=== PATIENT | female | born 1985 | race Asian ===

== ENCOUNTER 2018-05-23 14:53 | Emergency (ER) | payer MEDICAID ==
[~2018-05-23] VITALS: Ht 152.4 cm; Wt 52.0 kg
[2018-05-23 15:32] LABS: BASOPHILS # (AUTO) 0.03 x10^3/uL (0-0.1); BASOPHILS % (AUTO) 0 % (0-1); EOSINOPHILS # (AUTO) 0.06 x10^3/uL (0-0.4); EOSINOPHILS % (AUTO) 0 % (1-7); LYMPHOCYTES # (AUTO) 1.07 x10^3/uL (1-3.4); LYMPHOCYTES % (AUTO) 7 % (22-44); MD NO; MEAN CORPUSCULAR HEMOGLOBIN 29.7 pg (27.0-34.8); MEAN CORPUSCULAR HGB CONC 33.9 g/dL (32.4-35.8); MEAN CORPUSCULAR VOLUME 87.8 fL (80-100); MEAN PLATELET VOLUME 8.3 fL (7.4-10.4); MONOCYTES # (AUTO) 0.71 x10^3/uL (0.2-0.8); MONOCYTES % (AUTO) 5 % (2-9); NEUTROPHILS # (AUTO) 13.04 x10^3/uL (1.8-6.8); NEUTROPHILS % (AUTO) 87 % (42-75); PLATELET COUNT 250 x10^3/uL (130-400); RED BLOOD COUNT 4.32 x10^6/uL (3.82-5.3); RED CELL DISTRIBUTION WIDTH 13.4 % (9.6-15.2)
[2018-05-23 15:48] LABS: ALANINE AMINOTRANSFERASE 21 U/L (12-78); ALBUMIN 3.1 g/dL (3.4-5.0); ANION GAP 8 mmol/L (5-15); CALCIUM 8.4 mg/dL (8.5-10.1); CHLORIDE 106 mmol/L (98-107); CREATININE 0.62 mg/dL (0.55-1.02)
[2018-05-23 15:51] LABS: ALKALINE PHOSPHATASE 77 U/L (45-117); BILIRUBIN,TOTAL 0.2 mg/dL (0.2-1.0); TOTAL PROTEIN 7.3 g/dL (6.4-8.2)
[2018-05-23 18:15] VITALS: BP 95/67
--- NOTE | 2018-05-23 19:02 | NUR ---
pt called to room from lobby
--- NOTE | 2018-05-23 19:04 | NUR ---
not in lobby when called to room
--- NOTE | 2018-05-23 19:19 | NUR ---
pt called to room from lobby
[2018-05-23] MEDS ORDERED: PREN-3 PO (19:33)
[2018-05-23 21:02] LABS: MICROSCOPIC NOT IND
[2018-05-23 21:03] LABS: CULTURE INDICATED? NO
== END 2018-05-23 22:35 | disposition home or self-care (01) ==
LOC: ED 21:00
DX: O41.02X0 Oligohydramnios, second trimester, not applicable or unspecified (principal); Z3A.18 18 weeks gestation of pregnancy
CPT/HCPCS: 36415; 76815; 80053; 81003; 85025; 86901; 99284

== ENCOUNTER 2020-03-09 08:51 | Inpatient (IN) | payer MEDICAID ==
[~2020-03-09] VITALS: Ht 152.4 cm; Wt 70.9 kg
[~2020-03-09 08:51] MED LIST: PREN-3 PO
[2020-03-09] MEDS ORDERED: LIDOCAINE 1%, 20ML ONE (09:12)
[2020-03-09] MEDS ORDERED: NEWBORN KIT ONE ×2 (09:12→09:14)
[2020-03-09] MEDS ORDERED: MISOPROSTOL 200 MCG TABLET ONE (09:13)
[2020-03-09] MEDS ORDERED: OXYTOCIN 30U/ 0.9% NaCL 500ML 500 ML ONE (09:13)
[2020-03-09] MEDS: LACTATED RINGERS 1,000 ML IV SCH ×3 (09:22→20:00)
[2020-03-09] MEDS ORDERED: ONDANSETRON 2MG/ML, 2ML IVPush PRN (09:30)
[2020-03-09] MEDS ORDERED: PENICILLIN GK 5,000,000 UNITS in DEXTROSE 5% 100 ML IVPB ONE (09:30)
[2020-03-09] MEDS ORDERED: TERBUTALINE 1 MG/ML, 1ML SQ PRN (09:30)
[2020-03-09] MEDS ORDERED: TERBUTALINE 1 MG/ML, 1ML IVPush PRN (09:30)
[2020-03-09] MEDS ORDERED: OXYTOCIN 30U/ 0.9% NaCL 500ML 500 ML IV ONE (09:30)
[2020-03-09] MEDS ORDERED: OXYTOCIN 30U/ 0.9% NaCL 500ML 500 ML IV PRN (09:30)
[2020-03-09 09:43] LABS: BASOPHILS % (AUTO) 0 % (0-1); EOSINOPHILS % (AUTO) 1 % (1-7); LYMPHOCYTES % (AUTO) 13 % (22-44); MD NO; MEAN CORPUSCULAR HEMOGLOBIN 29.3 pg (27.0-34.8); MEAN CORPUSCULAR HGB CONC 33.4 g/dL (32.4-35.8); MEAN PLATELET VOLUME 9.5 fL (7.4-10.4); MONOCYTES % (AUTO) 7 % (2-9); NEUTROPHILS % (AUTO) 79 % (42-75); PLATELET COUNT 166 x10^3/uL (130-400); RED BLOOD COUNT 4.53 x10^6/uL (3.82-5.3); RED CELL DISTRIBUTION WIDTH 13.1 % (9.6-15.2)
[2020-03-09] MEDS ORDERED: FENTANYL PF 100 MCG/2ML ONE ×2 (09:45→12:38)
[2020-03-09] MEDS: FENTANYL PF 100 MCG/2ML IVPush PRN ×2 (09:49→12:41)
[2020-03-09] MEDS ORDERED: LACTATED RINGERS 1,000 ML IVBOLUS PRN (12:30)
[2020-03-09] MEDS ORDERED: FENTANYL/BUPIV./NS/PF 250 ML EPIDCONT SCH ×2 (12:30→13:00)
[2020-03-09] MEDS ORDERED: EPHEDRINE 50 MG/ML, 1ML IVPush PRN (12:30)
[2020-03-09] MEDS ORDERED: LACTATED RINGERS 1,000 ML IV SCH ×2 (12:30→20:00)
[2020-03-09] MEDS ORDERED: NALOXONE 0.4 MG/ML, 1ML IVPush PRN (12:30)
[2020-03-09] MEDS: PENICILLIN GK 2,500,000 UNITS in DEXTROSE 5% 100 ML IVPB SCH ×2 (13:01→16:55)
[2020-03-09] MEDS ORDERED: FENTANYL PF 500 MCG, BUPIVACAINE/PF 0.5%, 30ML 62.5 ML in SODIUM CHLORIDE 0.9% 177.5 ML EPIDCONT SCH (13:30)
[2020-03-09] MEDS ORDERED: BUPIVACAINE 0.25% ONE (14:03)
[2020-03-09] MEDS ORDERED: OXYcodone 5 MG/5 ML ORAL.SOL UDC ONE (19:42)
[2020-03-09] MEDS ORDERED: IBUPROFEN 600 MG TABLET ONE (19:44)
[2020-03-09] MEDS: IBUPROFEN 600 MG TABLET PO PRN (19:45)
[2020-03-09] MEDS ORDERED: METHYLERGONOVINE 0.2 MG/ML IM PRN (20:00)
[2020-03-09] MEDS ORDERED: CARBOPROST TROMETHAMINE 250 MCG/ML, 1ML IM PRN (20:00)
[2020-03-09] MEDS ORDERED: SIMETHICONE 80 MG CHEW TAB PO PRN (20:00)
[2020-03-09] MEDS ORDERED: ONDANSETRON 2MG/ML, 2ML IV PRN (20:00)
[2020-03-09] MEDS ORDERED: ACETAMINOPHEN 325 MG TABLET PO PRN (20:00)
[2020-03-09] MEDS: OXYTOCIN 30U/ 0.9% NaCL 500ML 500 ML IV SCH (20:00)
[2020-03-09] MEDS ORDERED: OXYcodone IR 5MG TABLET PO PRN (20:00)
[2020-03-09] MEDS ORDERED: MISOPROSTOL 200 MCG TABLET PR PRN (20:00)
[2020-03-09 22:30] VITALS: BP 115/76
[2020-03-09] MEDS: OXYcodone/APAP 5/325MG TABLET PO PRN (23:43)
[2020-03-10 02:00] VITALS: BP 108/72
[2020-03-10 02:54] LABS: BASOPHILS % (AUTO) 0 % (0-1); EOSINOPHILS % (AUTO) 0 % (1-7); LYMPHOCYTES % (AUTO) 8 % (22-44); MEAN CORPUSCULAR HEMOGLOBIN 30.2 pg (27.0-34.8); MEAN CORPUSCULAR HGB CONC 34.4 g/dL (32.4-35.8); MEAN PLATELET VOLUME 9.2 fL (7.4-10.4); MONOCYTES % (AUTO) 7 % (2-9); NEUTROPHILS % (AUTO) 85 % (42-75); PLATELET COUNT 148 x10^3/uL (130-400); RED BLOOD COUNT 3.66 x10^6/uL (3.82-5.3); RED CELL DISTRIBUTION WIDTH 13.4 % (9.6-15.2)
[2020-03-10 02:58] LABS: MD NO
[2020-03-10] MEDS: IBUPROFEN 600 MG TABLET PO PRN ×3 (05:09→21:26)
[2020-03-10] MEDS: OXYcodone/APAP 5/325MG TABLET PO PRN ×3 (05:10→21:27)
[2020-03-10 05:18] VITALS: BP 109/74
[2020-03-10] MEDS: OXYTOCIN 30U/ 0.9% NaCL 500ML 500 ML IV SCH ×2 (06:00→16:00)
[2020-03-10] MEDS: LACTATED RINGERS 1,000 ML IV SCH ×2 (06:00→16:00)
[2020-03-10 07:59] VITALS: BP 118/78
[2020-03-10] MEDS: PRENATAL VIT/IRON/FA 1 EACH TABLET PO SCH ×2 (08:13→08:14)
[2020-03-10] MEDS: DOCUSATE 100 MG CAPSULE PO PRN (08:59)
[2020-03-10 12:55] VITALS: BP 109/71
[2020-03-10 17:06] VITALS: BP 114/75
[2020-03-10 20:00] VITALS: BP 101/67
[2020-03-11 07:55] VITALS: BP 110/72
[2020-03-11] MEDS: PRENATAL VIT/IRON/FA 1 EACH TABLET PO SCH (08:21)
[2020-03-11] MEDS: IBUPROFEN 600 MG TABLET PO PRN ×2 (08:22→14:18)
[2020-03-11] MEDS: DOCUSATE 100 MG CAPSULE PO PRN (08:22)
[2020-03-11] MEDS: OXYcodone/APAP 5/325MG TABLET PO PRN ×2 (08:23→13:20)
[2020-03-11] MEDS ORDERED: IBUP-1222 PO (12:07)
[2020-03-11] MEDS ORDERED: OXYC-302 PO (12:07)
[2020-03-11] MEDS ORDERED: DOCU-131 PO (12:07)
== END 2020-03-11 15:00 | disposition home or self-care (01) | DRG 768 ==
LOC: LDOP 08:51 → LDIP 09:17 → 2NW 22:00
PROVIDERS: ADMIT Obstetrics & Gynecology Maternal & Fetal Medicine; ATTEND Obstetrics & Gynecology Maternal & Fetal Medicine
PROC: 10E0XZZ Delivery of Products of Conception, External Approach (ICD-10-PCS; principal; 2020-03-09)
PROC: 0DQR0ZZ Repair Anal Sphincter, Open Approach (ICD-10-PCS; 2020-03-09)
PROC: 3E0R3BZ Introduction of Anesthetic Agent into Spinal Canal, Percutaneous Approach (ICD-10-PCS; 2020-03-09)
PROC: 00HU33Z Insertion of Infusion Device into Spinal Canal, Percutaneous Approach (ICD-10-PCS; 2020-03-09)
DX: O99.824 Streptococcus B carrier state complicating childbirth (principal); Z37.0 Single live birth; Z3A.39 39 weeks gestation of pregnancy; O70.20 Third degree perineal laceration during delivery, unspecified; Z20.828 Contact with and (suspected) exposure to other viral communicable diseases
CPT/HCPCS: 36415; 85025; 86592; 86850; 86900; 87635; G0378; J2540; J3010; J2590; J7120